=== PATIENT | male | born 1945 | race Caucasian/White ===

== ENCOUNTER → 2020-02-04 | Outpatient (CLI) | payer MEDICARE, OTHER ==
[~2020-02-04] MED LIST: CHOL400T36 PO; FENO50CA3 PO; GLIP10TA24 PO; LISI-338 PO; MULT-245 PO; SITA1TAB11 PO; UBID10CA5 PO
== END | disposition home or self-care (01) ==
LOC: LAB 07:41
PROVIDERS: ATTEND Registered Nurse
DX: Z11.59 Encounter for screening for other viral diseases (principal)
CPT/HCPCS: C9803; U0003

== ENCOUNTER → 2020-02-06 | Day surgery (SDC) | payer MEDICARE, OTHER ==
[~2020-02-06] MED LIST changes: +IPRATRPIUM/ALBUTEROL 0.5/2.5MG 3 ML NEBU. NEB PRN; +IV RINGERS SOLUTION,LACTATED 1,000 ML IV SCH; +ONDANSETRON PF 4 MG/2 ML VIAL. IV PRN; +PROPOFOL 10,000 MCG/ML (20ML) VIAL IV ONE
[2020-02-06 11:38] VITALS: BP 121/74
--- NOTE | 2020-02-09 16:06 | PATHOLOGY ---
[facility] Accession Number: [id number] . 01 Material submitted: . PART A: colon - TRANSVERSE COLON POLYP. Modifiers: transverse PART B: colon - ASCENDING COLON POLYP. Modifiers: ascending PART C: colon - DESCENDING COLON POLYP. Modifiers: descending . 01 Clinical history: . None provided . 02 Diagnosis: A. Colon biopsies, transverse colon polyps: - Tubular adenomas. . B. Colon biopsies, ascending colon polyp: - Tubular adenoma. . C. Colon biopsies, descending colon polyps. - Diminutive tubular adenoma. - Hyperplastic polyp. ([facility] 02/09/2020) [facility] 02/09/2020 1501 Local . 02 Comment: There is no high-grade dysplasia or evidence of malignancy. ([facility] 02/09/2020) . 02 Electronically signed: . Josue Levy MD, Pathologist NPI- [id number] . 01 Gross description: . A. The specimen is received in formalin, labeled "Rio Zhou, transverse polyp". Received are two segments of pale segal soft tissue ranging in size from 0.3 to 0.5 cm in maximum dimensions. The specimen is submitted entirely in cassette A1. . B. The specimen is received in formalin, labeled "Rio Zhou, ascending polyp". Received are four segments of pale segal soft tissue ranging in size from 0.3 to 0.4 cm in maximum dimensions. The specimen is submitted entirely in cassette B1. . C. The specimen is received in formalin, labeled "Rio Zhou, descending polyp". Received are two segments of pale segal soft tissue ranging in size from 0.4 to 0.5 cm in maximum dimensions. The specimen is submitted entirely in cassette C1. ([facility]; 02/06/2020) [facility] 02/09/2020 1119 Local . 02 Pathologist provided ICD-10: D12.3, D12.2, D12.4, K63.5 . 02 CPT . 773313, [id number], 134659 Specimen Comment: A courtesy copy of this report has been sent to [phone] Specimen Comment: [id number] Specimen Comment: Report sent to / DR ENGLE Performed [facility]: [facility] [address], [place] [id number] MD Baron Kendrick MD Phone: [phone] Performed at: [facility] [address] [place], [place] [id number] MD Josue Levy MD Phone: [phone]
== END ==
LOC: SURG 08:51
PROVIDERS: ATTEND Internal Medicine Gastroenterology
DX: K62.5 Hemorrhage of anus and rectum (principal); D12.3 Benign neoplasm of transverse colon; D12.2 Benign neoplasm of ascending colon; D12.4 Benign neoplasm of descending colon; E78.00 Pure hypercholesterolemia, unspecified; G47.30 Sleep apnea, unspecified; I10 Essential (primary) hypertension; E11.9 Type 2 diabetes mellitus without complications; Z86.010 Personal history of colon polyps; Z90.49 Acquired absence of other specified parts of digestive tract; Z79.84 Long term (current) use of oral hypoglycemic drugs; Z88.8 Allergy status to other drugs, medicaments and biological substances; Z91.040 Latex allergy status
CPT/HCPCS: 45380; 45381; 45385; 88305; J2704; J7120